=== PATIENT | male | born 1935 | race Caucasian/White ===

== ENCOUNTER 2017-12-09 23:58 | Emergency (ER) | payer MEDICARE ==
[2017-12-10 00:29] VITALS: BP 167/86; PULSE 95; RESP 16; TEMP 98.3; O2SAT 97
--- NOTE | 2017-12-10 01:23 | ED PDOC ---
ATTENTION PHYSICIANS Hyperglycemia/Hypoglycemia Chief Complaint (Provider): High Blood sugar History Per: Patient History/Exam Limitations: no limitations Onset/Duration Of Symptoms: Hrs (2) Current Symptoms Are (Timing): Still Present Causative (Exacerbating) Factor(s): Recent Steroids : The patient does not have any of the infectious symptoms listed except for those marked. Treatment Prior To Provider Evaluation: Other (Metformin 1000 mg at home) Additional Complaint(s): 82 yo ,m, PMhx/o DM x 13 years, Asthma presents to ED c/o high blood sugar levels at home 389 mg/dl. Patient reports was feeling dizziness at home and checked his blood sugar 389 mg/dl. Patient took an extra Metformin 1000 mg at home and decided to come to ED because he was afraid something could happen. Patient reports that he had already taken his medications today for diabetes Metformin 1000 BID and also started Prednisone 40 mg x the last 2 days for asthma that was prescribed since the last week. Patient denies chest pain, cough , SOB, n,v,d,abd pain, headache, polyuria, polydipsia, polyphagia. At the time of this evaluation patient asymptomatic and denies dizziness. Accucheck repeated in triage 200 mg/dl PMD: Ayleen Butt <Emilia Richardson - Last Filed: 12/10/17 01:51> <Rashaun Pandya - Last Filed: 12/10/17 04:52> Time Seen by Provider: 12/10/17 00:31 Chief Complaint (Nursing): High Blood Sugar Supervising Attending Note - Attestation: I have personally seen and examined this patient.: Yes I have fully participated in the care of the patient.: Yes I have reviewed all pertinent clinical information, including history, physical exam and plan: Yes <Rashaun Pandya - Last Filed: 12/10/17 04:52> Past Medical History Vital Signs: Last Vital Signs Temp 98.3 F 12/10/17 00:25 Pulse 95 H 12/10/17 00:25 Resp 16 12/10/17 00:25 BP 167/86 H 12/10/17 00:25 Pulse Ox 97 12/10/17 00:25 - Medical History PMH: Asthma, Diabetes - Surgical History Surgical History: No Surg Hx - Family History Family History: States: No Known Family Hx - Immunization History Hx Tetanus Toxoid Vaccination: Yes Hx Influenza Vaccination: Yes Hx Pneumococcal Vaccination: Yes <Emilia Richardson - Last Filed: 12/10/17 01:51> Vital Signs: Last Vital Signs Temp 98.3 F 12/10/17 00:25 Pulse 95 H 12/10/17 00:25 Resp 16 12/10/17 00:25 BP 167/86 H 12/10/17 00:25 Pulse Ox 97 12/10/17 01:51 <Rashaun Pandya - Last Filed: 12/10/17 04:52> - Home Medications Home Medications: Ambulatory Orders Medication Instructions Recorded Meclizine HCl [Meclizine HCl] 1 tab PO Q6 PRN #20 tab 11/23/14 Ondansetron [Zofran Odt] 4 mg PO Q6 PRN #12 odt 11/23/14 - Allergies Allergies/Adverse Reactions: Allergies Allergy/AdvReac Type Severity Reaction Status Date / Time No Known Allergies Allergy Verified 11/23/14 16:43 Review of Systems Neurological: Positive for: Dizziness <Emilia Richardson - Last Filed: 12/10/17 01:51> Physical Exam - Physical Exam Appears: Positive for: Well, No Acute Distress Head Exam: Positive for: ATRAUMATIC, NORMOCEPHALIC Skin: Positive for: Normal Color Eye Exam: Positive for: Normal appearance ENT: Positive for: Normal ENT Inspection Neck: Positive for: Normal Cardiovascular/Chest: Positive for: Regular Rate, Rhythm, Murmur (4/6 systolic aortic area, mitral area, radiated to neck ) Respiratory: Positive for: Normal Breath Sounds. Negative for: Crackles, Rales , Rhonchi, Wheezing Gastrointestinal/Abdominal: Positive for: Soft. Negative for: Tenderness, Distended, Guarding, Rebound Back: Positive for: Normal Inspection Neurologic/Psych: Positive for: Alert, Oriented <Emilia Richardson - Last Filed: 12/10/17 01:51> - ECG O2 Sat by Pulse Oximetry: 97 <Emilia Richardson - Last Filed: 12/10/17 01:51> Medical Decision Making Medical Decision Makin:10 Impression DM. Hyperglycemia secondary to steroid use Plan EKG: LVH <Emilia Richardson - Last Filed: 12/10/17 01:51> Disposition - Disposition Disposition Time: 01:50 <Emilia Richardson - Last Filed: 12/10/17 01:51> <Rashaun Pandya - Last Filed: 12/10/17 04:52> - Clinical Impression Clinical Impression: Hyperglycemia - Disposition Referrals: Domenic Abbasi MD [Primary Care Provider] - Condition: STABLE Instructions: Hyperglycemia, Adult Forms: [facility] (Thai) Print Language: NAMIBIAN
--- NOTE | 2017-12-10 08:09 | CARD ---
APPROVED REPORT EKG Measurement Heart [id number] <Conclusion> Normal sinus rhythm Moderate voltage criteria for LVH, may be normal variant Borderline ECG
== END 2017-12-10 03:06 | disposition home or self-care (01) ==
LOC: H.ER 23:58
DX: E11.65 Type 2 diabetes mellitus with hyperglycemia (principal); T38.0X5A Adverse effect of glucocorticoids and synthetic analogues, initial encounter; J45.909 Unspecified asthma, uncomplicated